=== PATIENT | female | born 1990 | race Caucasian/White ===

== ENCOUNTER 2017-04-17 00:31 | Emergency (ER) | payer SELFPAY ==
[~2017-04-17] VITALS: Ht 162.6 cm; Wt 62.6 kg
--- NOTE | 2017-04-17 00:34 | NUR ---
PT [facility]. TAKEN TO BED 7
--- NOTE | 2017-04-17 00:40 | NUR ---
BIBA 26/F WITH COMPLAINT OF Sz, fall, c/o lt hip to lumbar pain, neck pain, h/a. Hx of Sx disorder, last sz 2 weeks ago, Meds: Topamax, Imitrex . SKIN IS PINK/WARM/DRY; AAOX4 . PATIENT STATES PAIN OF 10/10 AT THIS TIME; VSS; PATIENT POSITIONED FOR COMFORT; HOB ELEVATED; BEDRAILS UP X2; BED DOWN. ER MD MADE AWARE OF PT STATUS. FAMILY AT BEDSIDE.
[2017-04-17 00:43] VITALS: BP 123/68
--- NOTE | 2017-04-17 00:49 | NUR ---
WITH SEIZURE PADS ATTACHED TO BED.
--- NOTE | 2017-04-17 01:18 | NUR ---
Dr. Lorenzo evaluating patient at bedside.
[2017-04-17] MEDS ORDERED: KETOROLAC 30 MG/ML VIAL IVP ONE (01:25)
--- NOTE | 2017-04-17 01:51 | NUR ---
X-Ray at bedside.
--- NOTE | 2017-04-17 01:55 | NUR ---
Sonia allan in [facility] - 04/17/17 at 0159 by DAC[facility] XRAY AT BEDSIDE.
[2017-04-17] MEDS ORDERED: MORPHINE SULFATE 4 MG/ML SYR IVP ONE ×2 (02:20→03:30)
--- NOTE | 2017-04-17 03:25 | NUR ---
Attemted to ambulate pt. Pt was able to stand but not walk without severe pain. Notified Dr Lorenzo.
--- NOTE | 2017-04-17 03:45 | NUR ---
Ambulated pt. Pt able to ambulate slowly. Donald well with some pain.
--- NOTE | 2017-04-17 03:50 | NUR ---
IV removed, catheter intact and site benign. Applied folded 4x4 gauze and tape to stop bleeding.
[2017-04-17 03:56] VITALS: BP 106/70
--- NOTE | 2017-04-17 03:56 | NUR ---
Patient discharged with v/s stable. Written and verbal after care instructions given and explained. Patient alert, oriented and verbalized understanding of instructions. Ambulatory . All questions addressed prior to discharge. ID band removed. Patient advised to follow up with PMD. Rx OF NORCO 5MG-325MG TAB, MOTRIN 600MG TAB given. Patient educated on indication of medication including possible reaction and side effects. Opportunity to ask questions provided and answered.
== END 2017-04-17 03:56 | disposition home or self-care (01) ==
LOC: MED 00:31
DX: S13.4XXA Sprain of ligaments of cervical spine, initial encounter (principal); R56.9 Unspecified convulsions; M54.5 Low back pain; Z88.8 Allergy status to other drugs, medicaments and biological substances; W10.8XXA Fall (on) (from) other stairs and steps, initial encounter; Y93.89 Activity, other specified; Y92.89 Other specified places as the place of occurrence of the external cause; Y99.8 Other external cause status
CPT/HCPCS: 72040; 96374; 96375; 96376; 99284; J1885; J2270; Q0092